=== PATIENT | female | born 1995 | race American Indian/Alaskan Native ===

== ENCOUNTER 2016-11-26 10:20 | Inpatient (IN) | payer MEDICAID ==
[2016-11-26] MEDS ORDERED: BRETHINE IVP PRN (10:59)
[2016-11-26] MEDS ORDERED: ZOFRAN IV PRN (10:59)
[2016-11-26] MEDS ORDERED: ePHEDrine SULFATE IV PRN ×2 (10:59→14:20)
[2016-11-26] MEDS ORDERED: SUBLIMAZE IV PRN (10:59)
[2016-11-26] MEDS ORDERED: MINERAL OIL PO PRN (10:59)
[2016-11-26] MEDS ORDERED: BRETHINE SUB-Q PRN (10:59)
[2016-11-26] MEDS ORDERED: XYLOCAINE 2% INFILTRATI ONE (10:59)
[2016-11-26] MEDS ORDERED: PITOCin/NS 30 UNIT/500ML 30 UNITS/500 ML BAG IV SCH (11:00)
[2016-11-26] MEDS ORDERED: PITOCin/NS 20 UNIT/1000ML DRIP 20 UNITS/1,000 ML BAG IV SCH ×2 (11:00→19:00)
[2016-11-26] MEDS: LACTATED RINGERS 1,000 ML IV SCH ×2 (12:15→13:28)
--- NOTE | 2016-11-26 12:32 | History and Physical Report ---
History of Present Illness Date of examination: 11/26/16 Date of admission: 11/26/16 12:27 Chief complaint: contractions History of present illness: Pt presents in active labor Menstrual History Regularity: regular Menses every: 28 days Duration: 4-5 LMP: 02/12/2016 LMP reliability: definite LMP character: normal test type: urine test Date: 06/08/2016 Planned ? no EDC Calculations LMP: 11/18/2016 EDC Confirmation: 11/18/2016 Gestational Age: 16 5/7 weeks Past History : 2 Term Births: 0 Premature Births: 0 Living Children: 0 Para: 0 Mult. Births: 0 Prev : 0 Prev. attempt? 0 Aborta: 1 Elect. Ab: 0 Spont. Ab: 1 Ectopics: 0 # 1 Delivery date: 10/2015 Weeks Gestation: early Delivery type: SAB Comments: no D&C Past Medical History: denies Past Surgical History: negative Negative Past Surgical History Past Medical History Anesthesia Complications: negative Anemia: negative Autoimmune Disorder: negative Bleeding Disorder: negative Blood Transfusions: negative Breast Disease: negative Diabetes: negative Heart Disease: negative Hypertension: negative Hepatitis/Liver Disease: negative Kidney Disease/UTI: negative Neurologic/Epilepsy/Migraines: negative Phlebitis/Varicosities: negative Psychiatric: negative Pulmonary Disease/Asthma: negative Thyroid Disease: negative Hospitalizations: negative Surgery (Non-supervisor [facility]): negative Negative Past Surgical History Abnormal PAP: frist pap done today JACQUIE Exposure: negative Infertility: negative Uterine Anomaly: negative Uterine Surgery (not C/S): negative Other Gynecologic Problems: negative Family Hx: Pat Aunt - Lupus MGM - DM and HTN No hx Cancer Infection History Hx of STD: none HIV Risk Eval: no Hepatitis B Risk Eval: low risk Personal hx. of genital herpes: no Partner hx. of genital herpes: no Rash, Viral, or Febrile illness since last LMP? no Varicella/Chicken Pox Status: Previous Disease TB Risk: no Genetic History Congenital Heart Defect: Mom: no Dad: no Yvonne Disease: Mom: no Dad: no Thalassemia Mom: no Dad: no Neural Tube Defect Mom: no Dad: no Down's Syndrome Mom: no Dad: no Eliot-Sachs Mom: no Dad: no Sickle Cell Disease/Trait Mom: no Dad: no Hemophilia Mom: no Dad: no Muscular Dystrophy Mom: no Dad: no Cystic Fibrosis Mom: no Dad: no [place] Chorea Mom: no Dad: no Mental Retardation Mom: no Dad: no Fragile X Mom: no Dad: no Other Genetic/Chromosomal Disorder Mom: no Dad: no Child w/other defect Mom: no Dad: no Enviromental Exposures Xray Exposure: no Medication, drug, or alcohol use since LMP: no Chemical/Other Exposure: no Exposure to Cat Liter: no Hx of Parvovirus (Fifth Disease): no Occupational Exposure to Children: none Current Allergies (reviewed today): No known allergies Past History Past Medical History: no pertinent history Past Surgical History: no surgical history Social history: no significant social history - Obstetrical History Expected Date of Delivery: 11/18/16 Actual Gestation: 41 Week(s) 1 Day(s) : 2 Medications and Allergies Allergies Allergy/AdvReac Type Severity Reaction Status Date / Time No Known Allergies Allergy Unverified 11/03/15 16:58 Home Medications Medication Instructions Recorded Confirmed Last Taken Type No Known Home Medications [No 11/26/16 11/26/16 Unknown History Reported Home Medications] Active Meds: Active Medications Fentanyl (Sublimaze) 100 mcg IV Q2H PRN PRN Reason: Labor Pain Lactated Ringer's (Lactated Ringers) 1,000 mls @ 125 mls/hr IV DIRECT KIKI Oxytocin/Sodium Chloride (Pitocin/Ns 20 Unit/1000ml Drip) 20 units in 1,000 mls @ 125 mls/hr IV DIRECT KIKI Oxytocin/Sodium Chloride (Pitocin/Ns 30 Unit/500ml) 30 units in 500 mls @ 4 mls /hr IV TITR KIKI PRN Reason: Protocol Oxytocin/Sodium Chloride (Pitocin/Ns 30 Unit/500ml) 30 units in 500 mls @ 1 mls /hr IV TITR KIKI; 1 MILLIUNITS/MIN PRN Reason: Protocol Mineral Oil (Mineral Oil) 30 ml PO QHS PRN PRN Reason: Constipation Ondansetron HCl (Zofran) 4 mg IV Q8H PRN PRN Reason: Nausea And Vomiting Review of Systems All systems: negative - Vital Signs Vital signs: Vital Signs Pulse BP Pulse Ox 79 119/58 99 11/26/16 10:37 11/26/16 10:37 11/26/16 10:37 Temp Pulse Resp BP Pulse Ox 97.8 F 76 18 119/58 100 11/26/16 10:50 11/26/16 12:27 11/26/16 10:50 11/26/16 10:50 11/26/16 12:27 - Physical Exam Breasts: Positive: deferred Cardiovascular: Normal S1, Normal S2 Lungs: Positive: Clear to auscultation, Normal air movement Abdomen: Positive: normal appearance, soft, normal bowel sounds. Negative: distention, tenderness, guarding - Obstetrical Cervical Dilatation: 6.5 Cervical Effacement Percentage: 80 station: -1 Results Result Diagrams: 11/26/16 11:45 All other labs normal. Assessment and Plan - Patient Problems (1) 41 weeks gestation of Current Visit: Yes Status: Acute (2) Active labor Current Visit: Yes Status: Acute Plan to address problem: -admit -anticipate -pitocin augmentation (3) Anemia affecting in third trimester Current Visit: Yes Status: Acute
[2016-11-26 12:47] LABS: Hematocrit 30.5 % (30.3-42.9); Hemoglobin 9.7 gm/dl (10.1-14.3); Mean Corpuscular HGB Conc 32 % (30-34); Mean Corpuscular Hemoglobin 26 pg (28-32); Mean Corpuscular Volume 82 fl (79-97); Platelet Count 315 K/mm3 (140-440); Red Blood Count 3.73 M/mm3 (3.65-5.03); White Blood Count 6.5 K/mm3 (4.5-11.0)
[2016-11-26] MEDS: PITOCin/NS 30 UNIT/500ML 30 UNITS/500 ML BAG IV SCH ×2 (13:04→15:00)
[2016-11-26] MEDS ORDERED: ePHEDrine SULFATE ONE (14:08)
[2016-11-26] MEDS ORDERED: NARCAN 2 MG/2 ML IV PRN (14:20)
--- NOTE | 2016-11-26 14:20 | Anesthesia Consultation ---
Anesthesia Consult and Med Hx Date of service: 11/26/16 - Airway Anesthetic Teeth Evaluation: Good ROM Head & Neck: Adequate Mental/Hyoid Distance: Adequate Mallampati Class: Class II Intubation Access Assessment: Probably Good - Pre-Operative Health Status ASA Pre-Surgery Classification: ASA2 Proposed Anesthetic Plan: Epidural, Spinal - Pulmonary Hx Asthma: No COPD: No Hx Pneumonia: No - Cardiovascular System Hx Hypertension: No - Central Nervous System Hx Seizures: No Hx Psychiatric Problems: No - Endocrine Hx Renal Disease: No Hx End Stage Renal Disease: No Hx Hypothyroidism: No Hx Hyperthyroidism: No - Hematic Hx Anemia: No Hx Sickle Cell Disease: No - Other Systems Hx Alcohol Use: No
[2016-11-26] MEDS ORDERED: fentaNYL-BUPIV 2 MCG/ML-0.125% 200 MCG/100 ML BAG EPIDURAL SCH (15:00)
[2016-11-26] MEDS ORDERED: REGLAN ONE (16:51)
[2016-11-26] MEDS ORDERED: BICITRA ONE (16:51)
[2016-11-26] MEDS ORDERED: PEPCID IV ONE (16:51)
--- NOTE | 2016-11-26 16:54 | Event Note ---
Date: 11/26/16 Pt with repetitive decels both early and lates remote from delivery. I d/w operative delivery via c/s. She also has thick meconium. currently heart tones are back up. Pt no on pitocin at this time. I d/w c/s and risk involved. All questions were addressed and answered. Consents signed and placed on the chart.
[2016-11-26] MEDS ORDERED: WATER FOR IRRIG STERILE IR ONE (17:10)
[2016-11-26] MEDS ORDERED: NACL 0.9% IR ONE (17:10)
[2016-11-26] MEDS ORDERED: SUBLIMAZE ONE (17:23)
[2016-11-26] MEDS ORDERED: VERSED ONE (17:23)
[2016-11-26] MEDS ORDERED: MORPHINE ONE (17:43)
[2016-11-26] MEDS ORDERED: NEO SYNEPHRINE/NS Syringe(OR USE) IV ONE (18:00)
[2016-11-26] MEDS ORDERED: ZOFRAN ONE (18:00)
[2016-11-26] MEDS ORDERED: XYLOCAINE MPF 2% ONE (18:00)
--- NOTE | 2016-11-26 18:18 | Operative Report ---
Operative Report Operative Report: Date of procedure: 11/26/2016 Pre-operative diagnosis: 41 and 1/7 weeks gestation 3+ meconium Nonreassuring tracing Remote from delivery Post-operative diagnosis: Same Procedure name(s): Primary low transverse section via Pfannenstiel skin incision Surgeon: Dr. Yee Party Plan Demonstrator: Ms. Leticia Champagne CST Anesthesia: Epidural EBL: 1 L Urine output: 200 mL of clear urine at the end of procedure Fluids: [] Findings: Liveborn male infant weight 6 lbs. 15 oz. Apgars of 8 and 9 at one and 5 minutes Meconium stained fluid Normal fallopian tubes and ovaries bilaterally 1 cm anterior fibroid Indications: Patient presented in active labor. She underwent spontaneous rupture membranes that yielded 3-4+ meconium. Patient was noted to have repetitive deep decelerations to the 90s with each contraction as well as having some late decelerations. Patient was examined and found to be approximately 7 cm dilated. Was also noted at this time on exam. Decision was made at this time to proceed with primary section for persistent category 2 tracing from delivery. All risks benefits and alternatives were discussed with the patient. Consents were signed and placed on the chart. Procedure: Patient was taking to the operating room. Patient was then prepped and draped in sterile fashion after anesthesia was found to be adequate. A low transverse skin incision was made with the scalpel and carried down to the underlying layer of fascia with the Bovie. The fascia was then incised in the midline and this incision was extended bilaterally with the Bovie. The superior aspect of the fascia was grasped with Lenore clamps tented upward and dissected off of the anterior rectus muscles with the scalpel. In similar fashion the inferior aspect of the fascia was grasped with Lenore clamps tented upward and dissected off of the anterior rectus muscles. The rectus muscles were then bluntly divided in the midline. The peritoneum was identified and entered into sharply. The bladder blade was placed. The bladder flap was created using the Metzenbaum scissors. The bladder blade was replaced. A lower transverse uterine incision was made with the scalpel and extended bilaterally with the bandage scissors. Entry into the uterus noted meconium stained fluid. The infant's head was then delivered atraumatically. The anterior shoulder and rest of infant delivered without difficulty. The umbilical cord was clamped x2. The cord was cut. The was then placed in sterile bassinet. The cord blood was collected. The placenta was manually extracted in its entirety. The uterus was exteriorized and cleared of all clots and debris. The uterine incision was closed using 0 Vicryl in a running locking fashion. A second imbricating layer of the same suture was then created. Tisseel was placed along the uterine incision with excellent hemostasis noted. The posterior cul-de-sac was copiously irrigated. The uterus was returned to the abdomen. The gutters were also irrigated. The anterior rectus muscles were reapproximated using 3-0 Vicryl. The anterior rectus fascia was reapproximated using 0 Vicryl in a running fashion. The subcuticular fat was reapproximated using 2-0 Vicryl in a running fashion. The skin was reapproximated with 4-0 Monocryl with a subcuticular stitch. The patient tolerated the procedure well. Sponge lap and needle counts were all correct x3. Patient was taken to the recovery room awake and in stable condition.
[2016-11-26] MEDS ORDERED: MORPHINE IV PRN ×2 (18:24→18:52)
[2016-11-26] MEDS ORDERED: NORCO 5/325 PO PRN (18:24)
[2016-11-26] MEDS ORDERED: TUCKS PAD TP PRN (18:24)
[2016-11-26] MEDS ORDERED: LANSINOH TP PRN (18:24)
[2016-11-26] MEDS ORDERED: NARCAN 0.4 MG/1 ML IV PRN ×2 (18:24)
[2016-11-26] MEDS ORDERED: MYLICON PO PRN (18:24)
[2016-11-26] MEDS ORDERED: MILK OF MAGNESIA PO PRN (18:24)
--- NOTE | 2016-11-26 18:52 | Anesthesia Day of Surgery ---
Anesthesia Day of Surgery - Day of Surgery Patient Examined: Yes Patient H&P Reviewed: Yes Patient is NPO: Yes
--- NOTE | 2016-11-26 18:52 | Post Anesthesia Evaluation ---
- Post Anesthesia Evaluation Patient Participated: Yes Airway Patent: Yes Stable Respiratory Function: Yes Nausea/Vomiting: No Temp > 96.8F: Yes Pain Manageable: Yes Adequeate Hydration: Yes Anesthesia Complications: No Block Receding Appropriately: Yes Patient on Ventilator: No
[2016-11-26] MEDS ORDERED: D5LR 1,000 ML IV SCH (19:00)
[2016-11-26] MEDS ORDERED: SODIUM CHLORIDE FLUSH SYRINGE 10 ML IV NR (19:00)
[2016-11-26] MEDS: TORADOL IV PRN (19:21)
[2016-11-26] MEDS ORDERED: PITOCin/NS 20 UNIT/1000ML DRIP 20,000 MILLIUNITS/1,000 ML BAG IV ONE (20:06)
[2016-11-26] MEDS: BENADRYL IV PRN (21:10)
[2016-11-26] MEDS: ANCEF/NS 1 GM/50 ML 1 GM/50 ML BAG IV SCH (21:16)
[2016-11-27] MEDS: BENADRYL IV PRN (03:00)
[2016-11-27] MEDS: ANCEF/NS 1 GM/50 ML 1 GM/50 ML BAG IV SCH (03:12)
[2016-11-27] MEDS: TORADOL IV PRN (03:20)
[2016-11-27 06:28] LABS: Hematocrit 26.4 % (30.3-42.9); Hemoglobin 8.5 gm/dl (10.1-14.3)
[2016-11-27] MEDS: NORCO 5/325 PO PRN ×3 (10:35→21:38)
--- NOTE | 2016-11-27 11:02 | Progress Note ---
Subjective Date of service: 11/27/16 Interval history: 1st POD after Patient is in the bed, relatively comfortable. Pain is mostly controlled with pain meds. Ambulated well. No residual neurological deficit. No anesthesia complications Objective - Constitutional Vitals: Vital Signs - 12hr 11/26/16 11/27/16 11/27/16 23:30 05:00 08:50 Temperature 97.9 F 98.4 F 98.4 F Pulse Rate [ 77 74 90 From Monitor] Respiratory 18 18 20 Rate Blood Pressure 111/57 118/66 118/58 [Left Arm] - Labs CBC & Chem 7: 11/27/16 06:03 Labs: Abnormal lab results 11/26/16 11/27/16 Range/Units 11:45 06:03 Hgb 9.7 L 8.5 L (10.1-14.3) gm/dl Hct 26.4 L (30.3-42.9) % MCH 26 L (28-32) pg
--- NOTE | 2016-11-27 11:17 | Progress Note ---
Assessment and Plan - Patient Problems (1) delivery delivered Current Visit: Yes Status: Acute Plan to address problem: Patient stable postop day 1 with hematocrit of 26.4% patient denies any nausea vomiting or orthostatic symptoms continue routine post care Subjective - Subjective Date of service: 11/27/16 Principal diagnosis: nonreassuring heart tracing is status post section Patient reports: appetite normal, voiding normally, pain well controlled, no flatus [place]: doing well Objective - Vital Signs Latest vital signs: Vital Signs Temp Pulse Pulse Resp BP BP Pulse Ox 11/27/16 08:50 98.4 F 90 20 118/58 11/27/16 05:00 98.4 F 74 18 118/66 11/26/16 23:30 97.9 F 77 18 111/57 11/26/16 20:30 98.2 F 82 18 128/65 11/26/16 19:21 12 11/26/16 19:15 102 H 12 125/71 100 11/26/16 19:05 98.3 F 102 H 16 125/66 100 11/26/16 18:50 103 H 13 112/70 100 11/26/16 18:40 97.8 F 106 H 12 111/73 100 11/26/16 18:25 70 112/69 11/26/16 18:20 70 108/69 11/26/16 18:15 98.1 F 67 14 104/63 100 11/26/16 16:55 68 100 11/26/16 16:50 77 100 11/26/16 16:45 65 100 11/26/16 16:40 65 100 11/26/16 16:35 58 L 100 11/26/16 16:30 57 L 100 11/26/16 16:25 60 100 11/26/16 16:20 59 L 100 11/26/16 16:15 62 100 11/26/16 16:10 60 100 11/26/16 16:05 67 100 11/26/16 16:02 71 107/59 11/26/16 16:00 58 L 100 11/26/16 15:55 57 L 100 11/26/16 15:50 59 L 100 11/26/16 15:45 64 100 11/26/16 15:43 80 109/56 11/26/16 15:40 71 100 11/26/16 15:35 74 101/56 100 11/26/16 15:30 73 100 11/26/16 15:25 72 100 11/26/16 15:20 74 100 11/26/16 15:15 68 100 11/26/16 15:10 97.7 F 70 66 18 106/59 98 11/26/16 15:05 66 99 11/26/16 15:01 64 106/59 11/26/16 15:00 68 99 11/26/16 14:55 78 99 11/26/16 14:50 72 100 11/26/16 14:45 70 100 11/26/16 14:44 66 111/63 11/26/16 14:42 63 112/63 11/26/16 14:40 65 113/66 100 11/26/16 14:38 68 117/66 11/26/16 14:36 71 115/67 11/26/16 14:35 92 H 95 11/26/16 14:34 92 H 118/67 82 L 11/26/16 14:32 71 111/61 11/26/16 14:30 87 116/63 11/26/16 14:29 92 H 99 11/26/16 14:28 68 104/60 11/26/16 14:26 75 109/60 11/26/16 14:24 86 123/71 100 11/26/16 13:02 76 98 11/26/16 12:57 85 98 11/26/16 12:52 85 97 11/26/16 12:47 89 97 11/26/16 12:43 18 11/26/16 12:42 71 100 11/26/16 12:37 74 100 11/26/16 12:32 78 100 11/26/16 12:27 76 100 11/26/16 12:22 86 99 11/26/16 12:17 71 98 Intake and Output 11/26/16 11/27/16 11/27/16 22:59 06:59 14:59 Intake Total 1470 360 360 Output Total 1050 1700 300 Balance 420 -1340 60 Intake: IV 1350 ANCEF/NS 1 GM/50 ML 1 gm 50 In 50 ml @ 100 mls/hr IV Q8H [facility] Rx#:[id number] Oral 120 360 360 Output: Urine 1050 1700 300 Indwelling Catheter 400 1700 Void 300 Other: Total, Intake Amount 120 240 120 Total, Output Amount 400 1400 300 Voiding Method Toilet - Exam Breasts: Present: deferred Cardiovascular: Present: Regular rate Lungs: Present: Normal air movement Abdomen: Present: normal appearance, soft, distention, guarding Extremities: Present: edema Incision: Present: dressed - Labs Labs: Abnormal lab results 11/26/16 11/27/16 Range/Units 11:45 06:03 Hgb 9.7 L 8.5 L (10.1-14.3) gm/dl Hct 26.4 L (30.3-42.9) % MCH 26 L (28-32) pg
[2016-11-27] MEDS: MOTRIN PO PRN (21:44)
[2016-11-28] MEDS: NORCO 5/325 PO PRN ×4 (01:48→15:11)
[2016-11-28] MEDS: MOTRIN PO PRN ×2 (12:44→19:04)
--- NOTE | 2016-11-28 14:56 | Event Note ---
Date: 11/28/16 Pt is stable on Day 2 PO, wants to stay another day due to baby has not pooped. No changes from yesterdays note.
[2016-11-29] MEDS: MOTRIN PO PRN ×3 (00:12→13:15)
[2016-11-29] MEDS: NORCO 5/325 PO PRN ×3 (00:12→13:15)
--- NOTE | 2016-11-29 09:29 | Discharge Summary ---
Providers - Providers Date of Admission: 11/26/16 12:27 Date of discharge: 11/29/16 Attending physician: DARREN MCCONNELL Primary care physician: NICOLE SAWYER Hospitalization Reason for admission: active labor (non-reassuring status) Delivery: Procedure: section, primary low transverse Procedure details: done for distress at 41 weeks at 7 cm Incision: normal, dry, intact Other procedures: none complications: none Discharge diagnosis: IUP at term delivered, other () [place] baby: male Pertinent studies: Hct 26.4 at d/c Condition at discharge: Good Disposition: DISCHARGED TO HOME OR SELFCARE - Discharge Diagnoses (1) distress Status: Acute (2) Anemia affecting in third trimester Status: Chronic (3) delivery delivered Status: Acute Plan - Discharge Medications Prescriptions: Docusate Sodium [Colace] 100 mg PO BID PRN #60 capsule PRN Reason: Constipation Ferrous Sulfate [Feosol 325 MG tab] 325 mg PO TID #90 tablet Ibuprofen [Motrin 800 MG tab] 800 mg PO Q8HR PRN #30 tablet PRN Reason: Pain Lidocain2.5%/Prilocai2.5% [Emla] 2 gm TP ONCE #1 tube oxyCODONE /ACETAMINOPHEN [Percocet 5/325] 1 tab PO Q4HR #30 tab - Provider Discharge Summary Activity: no sex for 6 weeks, no heavy lifting 4 weeks, no strenuous exercise Diet: routine Instructions: routine Additional instructions: [] Smoking cessation referral if applicable(refer to patient education folder for contact #) [] Refer to [facility] Booklet Call your doctor immediately for: * Fever > 100.5 * Heavy vaginal bleeding ( >1 pad per hour) * Severe persistent headache * Shortness of breath * Reddened, hot, painful area to leg or breast * Drainage or odor from incision. * Keep incision clean and dry at all times and follow doctor's instructions regarding bathing/showering - Follow up plan Follow up: NICOLE SAWYER MD [Primary Care Provider] - 7 Days () Forms: [facility] Discharge Summary
[2016-11-29 17:39] VITALS: BP 112/78
== END 2016-11-29 16:00 | disposition home or self-care (01) | DRG 766 ==
LOC: TRG 10:20 → LD 12:27 → OB 19:48
PROVIDERS: ADMIT Obstetrics & Gynecology; ATTEND Obstetrics & Gynecology
PROC: 10D00Z1 Extraction of Products of Conception, Low, Open Approach (ICD-10-PCS; principal; 2016-11-26)
DX: O99.02 Anemia complicating childbirth (principal); D64.9 Anemia, unspecified; O77.0 Labor and delivery complicated by meconium in amniotic fluid; O76 Abnormality in fetal heart rate and rhythm complicating labor and delivery; Z3A.41 41 weeks gestation of pregnancy; Z37.0 Single live birth; Z82.49 Family history of ischemic heart disease and other diseases of the circulatory system; Z83.3 Family history of diabetes mellitus
CPT/HCPCS: 36415; 85014; 85018; 85027; 86850; 86900; 86901; 88307; 99211; C9250; G0463; J0690; J1200; J1885; J2250; J2270; J2370; J2405; J2590; J2765; J3010; J7120

== ENCOUNTER 2020-08-13 15:28 | Emergency (ER) | payer BC, MEDICAID ==
--- NOTE | 2020-08-13 16:50 | Event Note ---
ED Screening Note ED Screening Note: 25 y/o female c/o 2 weeks of abdominal pain with dysuria and flank pain with pelvic cramping tool. nausea with vomiting This initial assessment/diagnostic orders/clinical plan/treatment(s) is/are subject to change based on patients health status, clinical progression and re- assessment by fellow clinical providers in the ED. Further treatment and workup at subsequent clinical providers discretion. Patient/guardian urged not to elope from the ED as their condition may be serious if not clinically assessed and managed. Initial orders include:
[2020-08-13 17:08] LABS: Bilirubin,Urine NEG (Negative); Blood,Urine NEG (Negative); Color,Urine Yellow (Yellow); Mucus,Urine 2+ /HPF; Protein,Urine <15 mg/dL mg/dL (Negative); Urobilinogen,Urine < 2.0 mg/dL (<2.0)
[2020-08-13 17:39] LABS: Basophils # (Auto) 0.1 K/mm3 (0.0-0.1); Eosinophils % (Auto) 0.6 % (0.0-4.3); Hematocrit 35.9 % (30.3-42.9); Hemoglobin 11.8 gm/dl (10.1-14.3); Lymphocytes # (Auto) 1.6 K/mm3 (1.2-5.4); Lymphocytes % (Auto) 24.2 % (13.4-35.0); Mean Corpuscular HGB Conc 33 % (30-34); Mean Corpuscular Volume 87 fl (79-97); Monocytes # (Auto) 0.9 K/mm3 (0.0-0.8); Monocytes % (Auto) 14.1 % (0.0-7.3); Platelet Count 283 K/mm3 (140-440); Red Blood Count 4.16 M/mm3 (3.65-5.03); Red Cell Distribution Width 13.5 % (13.2-15.2)
[2020-08-13 17:47] LABS: Alanine Aminotransferase 13 units/L (7-56); Albumin 4.3 g/dL (3.9-5); Blood Urea Nitrogen 8 mg/dL (7-17); Calcium 9.3 mg/dL (8.4-10.2); Hemolysis Index 2
[2020-08-13 17:51] LABS: BUN/Creatinine Ratio 11; Bilirubin,Direct < 0.2 mg/dL (0-0.2)
--- NOTE | 2020-08-13 20:51 | Cat Scan Report ---
CT ABDOMEN AND PELVIS WITH IV CONTRAST INDICATION: rt Lower ABD Pain. COMPARISON: None available. TECHNIQUE: All CT scans at this facility use dose modulation, automated exposure control, iterative reconstructi on or weight based dosing, when appropriate, to reduce radiation dose to as low as reasonably achieva ble. FINDINGS: Lung Bases: No significant abnormality. Skeletal System: No acute abnormality. ABDOMEN: Liver: No significant abnormality. Gallbladder: Contracted. Bile Ducts: No significant abnormality. Pancreas: No significant abnormality. Spleen: No significant abnormality. Adrenals: No significant abnormality. Right Kidney: No significant abnormality. Left Kidney: No significant abnormality. Upper GI tract: No significant abnormality. Lymph Nodes: No significant adenopathy. Aorta: No significant abnormality. Additional Findings: No significant abnormality. PELVIS: Colon: There is mild right-sided diverticulosis. Focal inflammation is seen in the region of right-s ided diverticulosis (around axial series 2 image 83). Urinary Bladder and Distal Ureters: No significant abnormality. Appendix: No significant abnormality. Lymph Nodes: No significant adenopathy. Additional Findings: Trace free fluid in the pelvis is likely physiologic. Right ovarian cyst is like ly physiologic. IMPRESSION: 1. Focal inflammation in the right colon in the region of apparent diverticulosis is concerning for mild acute diverticulitis. This is somewhat unexpected given the patient's age. Follow-up colonoscopy is recommended after resolution of acute symptoms. Signer Name: Issa Alex MD Signed: 08/13/2020 8:46 PM Workstation Name: [id number]
--- NOTE | 2020-08-13 21:19 | Emergency Department Report ---
ED Abdominal Pain HPI - General Chief Complaint: Abdominal Pain Stated Complaint: ABDOMINAL PAIN Time Seen by Provider: 08/13/20 18:52 Source: patient Mode of arrival: Ambulatory Limitations: No Limitations - History of Present Illness Initial Comments: pt c/o lower abd pain x 1 week. states i have pain after urinating and having a bowel movement. + vaginal discharge. rr even and nonlabored MD Complaint: abdominal pain Location: LLQ, RLQ Radiation: none, RLQ Migration to: no migration Severity: mild Quality: dull Consistency: constant Improves With: nothing Context: recent antibiotic use Associated Symptoms: nausea. denies: hematemesis, anorexia - Related Data Previous Rx's Medication Instructions Recorded Last Taken Type Docusate Sodium [Colace] 100 mg PO BID PRN #60 capsule 11/26/16 Unknown Rx Ferrous Sulfate [Feosol 325 MG tab] 325 mg PO TID #90 tablet 11/26/16 Unknown Rx Ibuprofen [Motrin 800 MG tab] 800 mg PO Q8HR PRN #30 tablet 11/26/16 Unknown Rx Lidocain2.5%/Prilocai2.5% [Emla] 2 gm TP ONCE #1 tube 11/26/16 Unknown Rx oxyCODONE /ACETAMINOPHEN [Percocet 1 tab PO Q4HR #30 tab 11/26/16 Unknown Rx 5/325] Ciprofloxacin HCl 500 mg PO BID #20 tablet 08/13/20 Unknown Rx Hyoscyamine Subl [Levsin Sl 0.125 0.125 mg SL Q6HR PRN #20 tab 08/13/20 Unknown Rx TAB] metroNIDAZOLE [Flagyl] 500 mg PO Q12HR #20 tab 08/13/20 Unknown Rx Allergies Allergy/AdvReac Type Severity Reaction Status Date / Time No Known Allergies Allergy Unverified 11/03/15 16:58 ED Review of Systems ROS: Stated complaint: ABDOMINAL PAIN Other details as noted in HPI Comment: All other systems reviewed and negative ED Past Medical Hx - Past Medical History Previous Medical History?: No Hx Hypertension: No Hx Congestive Heart Failure: No Hx Diabetes: No Hx Deep Vein Thrombosis: No Hx Renal Disease: No Hx Sickle Cell Disease: No Hx Seizures: No Hx Asthma: No Hx COPD: No Hx HIV: No - Surgical History Past Surgical History?: No - Social History Smoking Status: Current Every Day Smoker Substance Use Type: None - Medications Home Medications: Home Medications Medication Instructions Recorded Confirmed Last Taken Type Docusate Sodium [Colace] 100 mg PO BID PRN #60 capsule 11/26/16 Unknown Rx Ferrous Sulfate [Feosol 325 MG tab] 325 mg PO TID #90 tablet 11/26/16 Unknown Rx Ibuprofen [Motrin 800 MG tab] 800 mg PO Q8HR PRN #30 tablet 11/26/16 Unknown Rx Lidocain2.5%/Prilocai2.5% [Emla] 2 gm TP ONCE #1 tube 11/26/16 Unknown Rx oxyCODONE /ACETAMINOPHEN [Percocet 1 tab PO Q4HR #30 tab 11/26/16 Unknown Rx 5/325] Ciprofloxacin HCl 500 mg PO BID #20 tablet 08/13/20 Unknown Rx Hyoscyamine Subl [Levsin Sl 0.125 0.125 mg SL Q6HR PRN #20 tab 08/13/20 Unknown Rx TAB] metroNIDAZOLE [Flagyl] 500 mg PO Q12HR #20 tab 08/13/20 Unknown Rx ED Physical Exam - General Limitations: No Limitations General appearance: alert, in no apparent distress - Head Head exam: Present: atraumatic, normocephalic - Eye Eye exam: Present: normal appearance - ENT ENT exam: Present: normal exam, mucous membranes moist - Neck Neck exam: Present: normal inspection - Respiratory Respiratory exam: Present: normal lung sounds bilaterally. Absent: respiratory distress - Cardiovascular Cardiovascular Exam: Present: regular rate, normal rhythm. Absent: systolic murmur, diastolic murmur, rubs, gallop - GI/Abdominal GI/Abdominal exam: Present: soft, tenderness (RLQ), normal bowel sounds. Absent: guarding, rebound, rigid, organomegaly, mass - Extremities Exam Extremities exam: Present: normal inspection, normal capillary refill - Back Exam Back exam: Present: normal inspection. Absent: CVA tenderness (R), CVA tenderness (L) - Neurological Exam Neurological exam: Present: alert, oriented X3, CN II-XII intact, normal gait - Psychiatric Psychiatric exam: Present: normal affect, normal mood - Skin Skin exam: Present: warm, dry, intact, normal color. Absent: rash ED Course Vital Signs 08/13/20 08/13/20 16:45 21:25 Temperature 98.4 F 98.2 F Pulse Rate 136 H 92 H Respiratory 18 19 Rate Blood Pressure 116/69 Blood Pressure 116/53 [Left] O2 Sat by Pulse 100 100 Oximetry ED Medical Decision Making - Lab Data Result diagrams: 08/13/20 17:11 08/13/20 17:11 - Radiology Data Radiology results: report reviewed Referring Physician:DAVID GREWALPatient Name:MICHA Walton ID:[id number] of :[id number]:FemaleAccession:[id number] Date:[id number] Status:Finalized Findings [facility] [address] [id number] Cat Scan Report Signed Patient: MICHA REMY MR#: [id number] : 1995 Acct:[id number] Age/Sex: 25 / F ADM Date: 08/13/20 Loc: ED Attending Dr: Ordering Physician: AVELINA GAMEZ Date of Service: 08/13/20 Procedure(s): CT abdomen pelvis w con Accession Number(s): [id number] cc: AVELINA GAMEZ CT ABDOMEN AND PELVIS WITH IV CONTRAST INDICATION: rt Lower ABD Pain. COMPARISON: None available. TECHNIQUE: All CT scans at this facility use dose modulation, automated exposure control, iterative reconstruction or weight based dosing, when appropriate, to reduce radiation dose to as low as reasonably achievable. FINDINGS: Lung Bases: No significant abnormality. Skeletal System: No acute abnormality. ABDOMEN: Liver: No significant abnormality. Gallbladder: Contracted. Bile Ducts: No significant abnormality. Pancreas: No significant abnormality. Spleen: No significant abnormality. Adrenals: No significant abnormality. Right Kidney: No significant abnormality. Left Kidney: No significant abnormality. Upper GI tract: No significant abnormality. Lymph Nodes: No significant adenopathy. Aorta: No significant abnormality. Additional Findings: No significant abnormality. PELVIS: Colon: There is mild right-sided diverticulosis. Focal inflammation is seen in the region of right-sided diverticulosis (around axial series 2 image 83). Urinary Bladder and Distal Ureters: No significant abnormality. Appendix: No significant abnormality. Lymph Nodes: No significant adenopathy. Additional Findings: Trace free fluid in the pelvis is likely physiologic. Right ovarian cyst is likely physiologic. IMPRESSION: 1. Focal inflammation in the right colon in the region of apparent diverticulosis is concerning for mild acute diverticulitis. This is somewhat unexpected given the patient's age. Follow-up colonoscopy is recommended after resolution of acute symptoms. Signer Name: Issa Alex MD Signed: 08/13/2020 8:46 PM Workstation Name: [id number] Transcribed By: COLIN Dictated By: Issa Alex MD Electronically Authenticated By: Issa Alex MD Signed Date/Time: 08/13/202045 DD/ 37 TD/TT: - Medical Decision Making This patient presents with abdominal pain which appears to be secondary to diverticulitis. Their evaluation has not identified a emergent etiology for the abdominal pain. Specifically, given the very benign exam, normal laboratory studies, and lack of significant risk factors, I have a very low suspicion for appendicitis, ischemic bowel, bowel perforation, or any other life threatening disease. I have a CT scan was performed patient did have diverticulitis on examination. I have discussed with the patient the level of uncertainty with undifferentiated abdominal pain and clearly explained the need to follow-up as noted on the discharge instructions, or return to the Emergency Department immediately if the pain worsens, develops fever, persistent and uncontrollable vomiting, or for any new symptoms or concerns. I discussed with the patient that this presentation today for abdominal pain could represent a significant risk for an acute abdominal process. Although the tests in the ED were essentially normal, there is still a possibility of a process such as appendicitis, cholecystitis, ulcer, early bowel obstruction, mesenteric ischemia, kidney stone, or even kidney infection which could subsequently cause disability or . The patient understands that they must return within 24 hours for a recheck or see their physician within 24 hours for re-exam due to the possibility of significant surgical or medical process. Started on Cipro and Flagyl as well as labs and advised on oral hydration hydration and the need for close follow-up Critical care attestation.: If time is entered above; I have spent that time in minutes in the direct care of this critically ill patient, excluding procedure time. ED Disposition Clinical Impression: Diverticulitis Disposition: DC-01 TO HOME OR SELFCARE Is pt being admited?: No Does the pt Need Aspirin: No Condition: Stable Instructions: Diverticulitis, Abdominal Pain (ED) Prescriptions: Ciprofloxacin HCl 500 mg PO BID #20 tablet metroNIDAZOLE [Flagyl] 500 mg PO Q12HR #20 tab Hyoscyamine Subl [Levsin Sl 0.125 TAB] 0.125 mg SL Q6HR PRN #20 tab PRN Reason: abdominal cramps and spasms Referrals: PRIMARY CARE, [Primary Care Provider] - 3-5 Days DARREN MONTERROSO MD [Staff Physician] - 3-5 Days
[2020-08-13 21:26] VITALS: BP 116/53
== END 2020-08-13 21:36 | disposition home or self-care (01) ==
LOC: ED 15:28
DX: K57.92 Diverticulitis of intestine, part unspecified, without perforation or abscess without bleeding (principal); F17.200 Nicotine dependence, unspecified, uncomplicated; Z79.1 Long term (current) use of non-steroidal anti-inflammatories (NSAID); Z79.2 Long term (current) use of antibiotics; Z79.899 Other long term (current) drug therapy
CPT/HCPCS: 36415; 74177; 80048; 80076; 81001; 83690; 84703; 85025; 99284; Q9967